=== PATIENT | female | born 2000 | race African-American/Black ===

== ENCOUNTER 2022-03-16 17:09 | Emergency (ER) | payer OTHER, SELFPAY ==
[2022-03-16 17:18] VITALS: BP 123/83; PULSE 58; RESP 18; TEMP 36.7; O2SAT 99; BMI 19.7
--- NOTE | 2022-03-16 17:48 | ED.ABDPAIN ---
HPI - Abdominal Pain General Time Seen by Provider: 17:49 Date Seen: 03/16/22 Chief Complaint: Abdominal Pain Stated Complaint: IUD Lost / Issue Time Seen by Provider: 03/16/22 17:42 Source: patient and RN notes reviewed Mode of arrival: ambulatory Limitations: no limitations History of Present Illness HPI narrative: Patient is a very pleasant 21-year-old [employer] student from [place] who comes to the emergency room from Urgent Care for evaluation of abdominal pain. Patient notes the onset of lower abdominal pain and right-sided pain on March 12. She notes that this was associated with some spotting from that time up until WednesdayMarch 15 and now this is improved. She has had continuing vaginal discharge that is little bit heavier than normal. She is sexually active with and sometimes without a condom. She does not normally get. Secondary to her IUD. She went to the clinic and they were unable to find the IUD string in the center to the emergency room. She notes no fever or chills. She has not had unusual cough sore throat or congestion. She did have a pelvic exam with what she thinks are swabs for STI testing at Urgent Care. She has not taken anything for pain. She has no diarrhea or dysuria. Movement does not seem to really change or pain. Related Data Home Medications Medication Instructions Recorded Confirmed No Known Home Medications 03/16/22 03/16/22 Allergies Allergy/AdvReac Type Severity Reaction Status Date / Time No Known Drug Allergies Allergy Verified 03/16/22 15:59 Review of Systems Status of ROS Reports: 10 or more systems reviewed and unremarkable except as noted in History and below Const Denies: fever, chills or fatigue Eyes Denies: change in vision ENMT Denies: throat pain Cardio Denies: shortness of breath with exertion Resp Denies: shortness of breath or cough GI Reports: abdominal pain; Denies: nausea, vomiting, diarrhea, change in bowel habits or blood in stool Reports: vaginal discharge and other (Increased spotting from March 12 through the ); Denies: painful urination or urinary frequency Musculo Reports: back pain (Present on day 1 of symptoms and no pain since that time.) Integ/Breast Denies: rash Neuro Denies: headache Endo Denies: fatigue PFSH PFSH Social History Smoking Status: Never smoker Exam Narrative: Exam Narrative: Patient is alert and oriented. Nontoxic in appearance. External ears eyes nose clear. Heart with regular rate and rhythm and lungs are clear to auscultation. Abdomen is soft but there is tenderness noted in the suprapubic area and on the right. There is no distension and there is no rebound tenderness. Moving without difficulty no peritoneal signs. Const: Vital Signs, click to edit/add: Vital Signs - 24 hr 03/16/22 17:18 Temperature 98.1 F Pulse Rate [Right Pulse Oximeter] 58 L Respiratory Rate 18 Blood Pressure [Ri ght Upper Arm] 123/83 Pulse Oximetry 99 Oxygen Delivery Me thod Room Air Documenting provider has reviewed patient's vital signs: yes Course Course Hospital Course: At this time will order ultrasound to identify location of IUD. Will also check , urinalysis and insure that STI check was done. Patient is receptive to our plan. Reevaluation(s) Reevaluation #1: It is confirmed that a GC chlamydia had been done in clinic. Urine hCG was also negative. Reevaluation #2: Patient noted to have a 4 cm cyst on her right ovary. Good blood flow so there is no evidence torsion. Count reassuring and thus do not think that this is also an underlying appendicitis. IUD appears to be in good position. Patient is receptive to some oral ibuprofen. Currently waiting on further outstanding labs. Vital Signs Vital signs: Initial Vital Signs Temperature 98.1 F 03/16/22 17:18 Temperature Source Temporal Artery Scan 03/16/22 17:18 Pulse Rate 58 L 03/16/22 17:18 Respiratory Rate 18 03/16/22 17:18 Blood Pressure 123/83 03/16/22 17:18 Blood Pressure Mean 96 03/16/22 17:18 Blood Pressure Position Sitting 03/16/22 17:18 Pulse Oximetry 99 03/16/22 17:18 Oxygen Delivery Method 03/16/22 17:18 Vital Signs Temperature 98.1 F 03/16/22 17:18 Pulse Rate 58 L 03/16/22 17:18 Respiratory Rate 18 03/16/22 17:18 Blood Pressure 123/83 03/16/22 17:18 Pulse Oximetry 99 03/16/22 17:18 Oxygen Delivery Method 03/16/22 17:18 Temperature 98.1 F 03/16/22 17:18 Pulse Rate 58 L 03/16/22 17:18 Respiratory Rate 18 03/16/22 17:18 Blood Pressure 123/83 03/16/22 17:18 Pulse Oximetry 99 03/16/22 17:18 Oxygen Delivery Method 03/16/22 17:18 MDM - Abdominal Pain MDM Narrative Medical decision making narrative: 1. Right ovarian cyst-patient will follow-up in the clinic for recheck. Is borderline large and causing her discomfort. Would recommend continuing ibuprofen. Patient did receive dose 600 mg here in the emergency room. No elevated white count or rebound tenderness to suggest underlying appendicitis. Urinalysis without evidence of UTI. 2. Vaginal discharge-no fever and white count is reassuring. GC chlamydia pending from the clinic. 3. IUD malfunction-IUD appears to be in good position but patient unable to find IUD string. Not subject to her to a 2nd vaginal examination this evening as she will need to follow-up with OBGYN. 4. Disposition-home at this time. Return to the emergency room for worsening symptoms and as needed. Follow-up with OBGYN. Medical Records Attestation: I reviewed the patient's medical records. Lab Data Attestation: I reviewed the patient's lab results. Labs: Lab Results 03/16/22 03/16/22 03/16/22 Range/Units 18:09 18:52 19:09 WBC 8.23 (4.50-11.00) K/uL RBC 4.74 (4.00-5.20) m/uL Hgb 13.1 (12.0-16.0) gm/dL Hct 40.1 (33.0-51.0) % MCV 85 (80-100) fL MCH 28 (26-34) pg MCHC 33 (32-36) gm/dL RDW Coeff of Coni 13.1 (11.5-15.5) % Plt Count 306 (140-440) K/uL Neut % (Auto) 70.8 (42.0-72.0) % Lymph % (Auto) 22.4 (20-44) % [place] % (Auto) 5.5 (0.0-11.0) % Eos % (Auto) 1.1 (0.0-7.0) % Baso % (Auto) 0.1 (0.0-3.0) % Neut # (Auto) 5.83 (1.7-7.0) K/uL Lymph # (Auto) 1.84 (0.90-2.90) K/uL [place] # (Auto) 0.50 (0.00-0.90) K/UL Eos # (Auto) 0.09 (0.00-0.50) K/uL Baso # (Auto) 0.01 (0.00-0.30) K/uL Abs Immat Gran (auto) 0.01 (0.00-0.30) K/uL Diff Slide Review Acceptable Review (Acceptable) Sodium (135-149) mmol/L Potassium (3.6-5.1) mmol/L Chloride (96-114) mmol/L Carbon Dioxide (20-32) mmol/L BUN (5-24) mg/dL Creatinine (0.6-1.2) mg/dL Estimated Creat Clear Estimated GFR ml/min Glucose (60-115) mg/dL Calcium (8.7-10.8) mg/dL HCG, Qual Urine Color Yellow (Yellow) Urine Appearance Clear (Clear) Urine pH 7.5 (5.0-8.5) Ur Specific [place] 1.020 (1.000-1.030) Urine Protein Negative (Negative) Urine Glucose (UA) Negative (Negative) Urine Ketones Negative (Negative) Urine Blood Negative (Negative) Urine Nitrite Negative (Negative) Urine Bilirubin Negative (Negative) Urine Urobilinogen 0.2 (0.2-1.0) Ur Leukocyte Esterase Negative (Negative) Urine RBC 0-2 (0-2) Urine WBC 0-2 (0-5) Ur Squamous Epith Cells None (None-Few) Urine Bacteria None (None) Urine HCG, Qual Negative (Negative) 03/16/22 03/16/22 Range/Units 19:09 19:09 WBC (4.50-11.00) K/uL RBC (4.00-5.20) m/uL Hgb (12.0-16.0) gm/dL Hct (33.0-51.0) % MCV (80-100) fL MCH (26-34) pg MCHC (32-36) gm/dL RDW Coeff of Coni (11.5-15.5) % Plt Count (140-440) K/uL Neut % (Auto) (42.0-72.0) % Lymph % (Auto) (20-44) % [place] % (Auto) (0.0-11.0) % Eos % (Auto) (0.0-7.0) % Baso % (Auto) (0.0-3.0) % Neut # (Auto) (1.7-7.0) K/uL Lymph # (Auto) (0.90-2.90) K/uL [place] # (Auto) (0.00-0.90) K/UL Eos # (Auto) (0.00-0.50) K/uL Baso # (Auto) (0.00-0.30) K/uL Abs Immat Gran (auto) (0.00-0.30) K/uL Diff Slide Review (Acceptable) Sodium 138 (135-149) mmol/L Potassium 4.5 (3.6-5.1) mmol/L Chloride 103 (96-114) mmol/L Carbon Dioxide 25 (20-32) mmol/L BUN 7 (5-24) mg/dL Creatinine 0.5 L (0.6-1.2) mg/dL Estimated Creat Clear 149.03 Estimated GFR 138 ml/min Glucose 111 (60-115) mg/dL Calcium 9.7 (8.7-10.8) mg/dL HCG, Qual Cancelled Urine Color (Yellow) Urine Appearance (Clear) Urine pH (5.0-8.5) Ur Specific [place] (1.000-1.030) Urine Protein (Negative) Urine Glucose (UA) (Negative) Urine Ketones (Negative) Urine Blood (Negative) Urine Nitrite (Negative) Urine Bilirubin (Negative) Urine Urobilinogen (0.2-1.0) Ur Leukocyte Esterase (Negative) Urine RBC (0-2) Urine WBC (0-5) Ur Squamous Epith Cells (None-Few) Urine Bacteria (None) Urine HCG, Qual (Negative) Imaging Data Ultrasound pelvic: Attestation: I have reviewed the pertinent imaging results. Radiologist's impression: Uterus: 6.7 x 3.3 x 4.0 cm.? Normal echotexture of the myometrium.? No masses.? Endometrium: Transvaginal imaging was performed to better evaluate the endometrium. Difficult to accurately measure endometrium given IUD. However, grossly normal. IUD appears to be in appropriate position. Right ovary 5.3 x 3.2 x 4.9 centimeter. Left ovary 3.0 x 1.6 x 2.1 centimeter. Incidental 4.3 right-sided simple ovarian cyst. No ovarian or adnexal masses. Normal arterial and venous blood flow is demonstrated in both ovaries. Cul-de-sac: No significant free fluid.? ? IMPRESSION: IUD appears to be in appropriate position. Incidental 4.3 centimeter simple appearing right ovarian cyst, not unexpected for age. Normal ovaries for age. Discharge Plan Discharge Clinical Impression: Ovarian cyst, Abdominal pain Patient Disposition: Home, Self-Care Condition: Improved Additional Instructions: Follow-up with our OBGYN clinic for recheck of IUD string as well as ovarian cyst. The phone number for appointment is [phone]. Please let them know that you had been in the emergency room and this is for follow-up. Ibuprofen or Tylenol as needed for discomfort. Return to the emergency room for increasing pain, femur, onset of new symptoms. The clinic did do gonorrhea and chlamydia testing and we will await those results. Prescriptions: No Action No Known Home Medications Follow Up/Referrals: Provider,Not a Local [Primary Care Provider] - Stand Alone Forms: [employer] Info Instructions
--- NOTE | 2022-03-16 18:09 | CRLHL7_ITS ---
For Patients: As a result of the Century Cures Act, medical imaging exams and procedure reports are released immediately into your electronic medical record. You may view this report before your referring provider. If you have questions, please contact your health care provider. INDICATION: Lost IUD. TECHNIQUE: Ultrasound pelvis transabdominal and transvaginal for better assessment or to better visualize the endometrium. Real-time sonographic images with spectral and color Doppler imaging of the ovaries were obtained. COMPARISON: None. FINDINGS: Uterus: 6.7 x 3.3 x 4.0 cm. Normal echotexture of the myometrium. No masses. Endometrium: Transvaginal imaging was performed to better evaluate the endometrium. Difficult to accurately measure endometrium given IUD. However, grossly normal. IUD appears to be in appropriate position. Right ovary 5.3 x 3.2 x 4.9 centimeter. Left ovary 3.0 x 1.6 x 2.1 centimeter. Incidental 4.3 right-sided simple ovarian cyst. No ovarian or adnexal masses. Normal arterial and venous blood flow is demonstrated in both ovaries. Cul-de-sac: No significant free fluid. IMPRESSION: IUD appears to be in appropriate position. Incidental 4.3 centimeter simple appearing right ovarian cyst, not unexpected for age. Normal ovaries for age. Dictated by Guru Pedroza MD @ 03/16/2022 7:52:20 PM (Electronically Signed)
[2022-03-16 19:09] LABS: Ur HCG Qualitative* Negative (Negative)
[2022-03-16 19:15] LABS: Basophils Absolute Auto 0.01 K/uL (0.00-0.30); Basophils Percent Auto 0.1 % (0.0-3.0); Eosinophils Absolute Auto 0.09 K/uL (0.00-0.50); Eosinophils Percent Auto 1.1 % (0.0-7.0); Hematocrit 40.1 % (33.0-51.0); Hemoglobin* 13.1 gm/dL (12.0-16.0); Immature Granulocytes Abs Auto 0.01 K/uL (0.00-0.30); Lymphocytes Absolute Auto 1.84 K/uL (0.90-2.90); Lymphocytes Percent Auto 22.4 % (20-44); Mean Corpuscular HGB Conc 33 gm/dL (32-36); Mean Corpuscular Hemoglobin 28 pg (26-34); Mean Corpuscular Volume 85 fL (80-100); Monocytes Percent Auto 5.5 % (0.0-11.0); Neutrophils Absolute Auto 5.83 K/uL (1.7-7.0); Neutrophils Percent Auto 70.8 % (42.0-72.0); Platelet Count* 306 K/uL (140-440); RDW Coefficient of Variation % 13.1 % (11.5-15.5); Red Blood Count 4.74 m/uL (4.00-5.20); White Blood Count* 8.23 K/uL (4.50-11.00)
[2022-03-16 19:25] LABS: Slide Review Reflex Yes
[2022-03-16 19:42] LABS: Chloride* 103 mmol/L (96-114); Potassium* 4.5 mmol/L (3.6-5.1); Sodium* 138 mmol/L (135-149)
[2022-03-16 19:44] LABS: Creatinine* 0.5 mg/dL (0.6-1.2); Est. Creatinine Clearance* 149.03; Estimated Glomerular Filt Rate 138 ml/min
[2022-03-16 19:45] LABS: Blood Urea Nitrogen* 7 mg/dL (5-24); Calcium* 9.7 mg/dL (8.7-10.8); Carbon Dioxide* 25 mmol/L (20-32); Glucose* 111 mg/dL (60-115)
[2022-03-16 20:15] LABS: Slide Review Acceptable Review (Acceptable)
[2022-03-16 20:32] LABS: Appearance Urine Clear (Clear); Bilirubin Urine Negative (Negative); Blood Urine Negative (Negative); Color Urine Yellow (Yellow); Glucose Urine Negative (Negative); Ketones Urine Negative (Negative); Leukocyte Esterase Urine Negative (Negative); Nitrite Urine Negative (Negative); Protein Urine Negative (Negative); Urobilinogen Urine 0.2 (0.2-1.0); pH Urine 7.5 (5.0-8.5)
[2022-03-16 20:38] LABS: RBC Urine 0-2 (0-2); WBC Urine 0-2 (0-5)
[2022-03-16] MEDS: IBUPROFEN 200 MG TABLET 600 MG PO (20:51)
== END 2022-03-16 20:58 | disposition home or self-care (01) ==
PROVIDERS: Emergency Provider Family Medicine
DX: N83.291 Other ovarian cyst, right side (principal)
CPT/HCPCS: 36415; 76830; 80048; 81001; 81025; 84703; 85025; 87491; 87591; 93976; 99284; A9270